=== PATIENT | female | born 1995 | race Caucasian/White ===

== ENCOUNTER 2023-04-17 17:10 | Observation (INO) | payer OTHER, SELFPAY ==
[2023-04-17 17:33] VITALS: BP 133/90; PULSE 104
[2023-04-17 17:43] LABS: Basophils Absolute Auto 0.1 10^3/uL (0.0-0.1); Basophils Percent Auto 0.5 % (0.2-2.0); Eosinophils Absolute Auto 0.1 10^3/uL (0.0-0.7); Eosinophils Percent Auto 0.9 % (0.9-7.0); Hematocrit 37.3 % (36.0-48.0); Hemoglobin 12.5 g/dL (12.0-16.0); Immature Granulocytes Abs Auto 0.15 10^3/uL (0.00-0.03); Immature Granulocytes Pct Auto 1.5 % (0.0-0.5); Lymphocytes Absolute Auto 2.3 10^3/uL (1.2-3.8); Lymphocytes Percent Auto 23.8 % (20.5-60.0); Mean Corpuscular HGB Conc 33.5 g/dL (29.9-35.2); Mean Corpuscular Hemoglobin 30.4 pg (26.7-34.0); Mean Corpuscular Volume 90.8 fL (81.0-99.0); Mean Platelet Volume 11.8 fL (9.5-13.5); Monocytes Absolute Auto 0.8 10^3/uL (0.3-0.8); Monocytes Percent Auto 8.5 % (1.7-12.0); Neutrophils Absolute Auto 6.3 10^3/uL (1.4-6.5); Neutrophils Percent Auto 64.8 % (43.0-75.0); Platelet Count 172 10^3/uL (150-450); Red Blood Count 4.11 10^6/uL (4.20-5.40); Red Cell Distribution Width 14.6 % (11.0-15.0); White Blood Count 9.8 10^3/uL (4.0-11.0)
[2023-04-17 17:48] VITALS: BP 120/74; PULSE 86
[2023-04-17 18:11] LABS: Creatinine Urine Random 23.74 mg/dL (20.00-300.00); Protein Creatinine Ratio Urine 0.25; Total Protein Urine Random <6.0 mg/dL (<=11.9)
[2023-04-17 18:13] LABS: Alanine Aminotransferase 12 U/L (14-59); Albumin Globulin Ratio 0.6; Albumin Level 2.6 g/dL (3.4-5.0); Alkaline Phosphatase 149 U/L (46-116); Anion Gap 14.7; Aspartate Amino Transferase 12 U/L (15-37); BUN Creatinine Ratio 12.7; Bilirubin Total 0.2 mg/dL (0.2-1.0); Calcium 8.7 mg/dL (8.5-10.1); Carbon Dioxide 22.2 mmol/L (21.0-32.0); Chloride 104 mmol/L (98-107); Estimated GFR (African America >60 (>=60); Estimated GFR (Non-African Ame >60 (>=60); Globulin 4.3 g/dL; Glucose 127 mg/dL (74-106); Lactate Dehydrogenase 89 U/L (81-234); Potassium 3.9 mmol/L (3.5-5.1); Sodium 137 mmol/L (136-145); Total Protein 6.9 g/dL (6.4-8.2); Uric Acid 4.5 mg/dL (2.6-6.0)
[2023-04-17 18:43] VITALS: BP 140/87; PULSE 89
[2023-04-17 19:19] VITALS: BP 111/59; PULSE 92
[2023-04-17 19:51] VITALS: BP 116/70; PULSE 89
[2023-04-17 20:21] VITALS: BP 117/68; PULSE 88
== END 2023-04-17 20:32 | disposition home or self-care (01) ==
LOC: FBC 17:13
PROVIDERS: Midwife; Admitting Provider Obstetrics & Gynecology; Visit Provider Obstetrics & Gynecology
DX: O16.9 Unspecified maternal hypertension, unspecified trimester (principal); Z3A.00 Weeks of gestation of pregnancy not specified
CPT/HCPCS: 36415; 59025; 80053; 82570; 83615; 84156; 84550; 85025; G0378; G0379

== ENCOUNTER 2023-04-24 17:17 | Inpatient (IN) | payer OTHER, SELFPAY ==
[2023-04-24] VITALS (9 sets, daily range): BP systolic 121–142; BP diastolic 73–94; PULSE 81–100; TEMP 36.9
[2023-04-24 18:00] LABS: Hematocrit 37.9 % (36.0-48.0); Hemoglobin 12.6 g/dL (12.0-16.0); Mean Corpuscular HGB Conc 33.2 g/dL (29.9-35.2); Mean Corpuscular Hemoglobin 30.3 pg (26.7-34.0); Mean Corpuscular Volume 91.1 fL (81.0-99.0); Mean Platelet Volume 12.1 fL (9.5-13.5); Platelet Count 164 10^3/uL (150-450); Red Blood Count 4.16 10^6/uL (4.20-5.40); Red Cell Distribution Width 14.4 % (11.0-15.0); White Blood Count 10.1 10^3/uL (4.0-11.0)
[2023-04-24 18:10] LABS: Amphetamine Screen Urine NEGATIVE (NEGATIVE); Barbiturates Screen Urine NEGATIVE (NEGATIVE); Benzodiazepines Screen Urine NEGATIVE (NEGATIVE); Buprenorphine Screen Urine NEGATIVE (NEGATIVE); Cannabinoid Screen Urine NEGATIVE (NEGATIVE); Cocaine Screen Urine NEGATIVE (NEGATIVE); Methadone Screen Urine NEGATIVE (NEGATIVE); Methamphetamines Screen Urine NEGATIVE (NEGATIVE); Opiate Screen Urine NEGATIVE (NEGATIVE); Oxycodone Screen Urine NEGATIVE (NEGATIVE); Phencyclidine Screen Urine NEGATIVE (NEGATIVE); Tricyclic Antidepressant Urine NEGATIVE (NEGATIVE)
[2023-04-24] MEDS: DINOPROSTONE 10 MG VAG INSERT.ER VAGINAL (18:41)
[2023-04-24 18:58] LABS: Alanine Aminotransferase 14 U/L (14-59); Albumin Globulin Ratio 0.6; Albumin Level 2.6 g/dL (3.4-5.0); Alkaline Phosphatase 156 U/L (46-116); Anion Gap 12.2; Aspartate Amino Transferase 15 U/L (15-37); BUN Creatinine Ratio 10.1; Bilirubin Total 0.1 mg/dL (0.2-1.0); Calcium 8.9 mg/dL (8.5-10.1); Carbon Dioxide 21.6 mmol/L (21.0-32.0); Chloride 103 mmol/L (98-107); Estimated GFR (African America >60 (>=60); Estimated GFR (Non-African Ame >60 (>=60); Globulin 4.1 g/dL; Glucose 143 mg/dL (74-106); Lactate Dehydrogenase 114 U/L (81-234); Potassium 3.8 mmol/L (3.5-5.1); Sodium 133 mmol/L (136-145); Total Protein 6.7 g/dL (6.4-8.2); Uric Acid 5.1 mg/dL (2.6-6.0)
[2023-04-24 19:03] LABS: Creatinine Urine Random 24.72 mg/dL (20.00-300.00); Protein Creatinine Ratio Urine 0.24; Total Protein Urine Random <6.0 mg/dL (<=11.9)
[2023-04-24] MEDS: SERTRALINE HCL 50 MG TABLET PO (20:43)
[2023-04-24] MEDS: ZOLPIDEM TARTRATE 5 MG TABLET PO (22:30)
[2023-04-25] VITALS (67 sets, daily range): BP systolic 96–157; BP diastolic 51–97; PULSE 64–114; RESP 12–20; TEMP 36.1–37; O2SAT 92–94
[2023-04-25] MEDS: 0.9 % SODIUM CHLORIDE 1,000 ML 125 ML IV ×4 (07:58→20:57)
[2023-04-25] MEDS: OXYTOCIN/0.9 % SODIUM CHLORIDE 10 UNITS/500 ML PLAST..BAG 6 UNIT IV (07:58)
--- NOTE | 2023-04-25 08:14 | PM.OBHP ---
OB - H&P: HPI History of Present Illness Chief complaint: PARTNERS : 1 Para: 0 History of Present Dating criteria: LMP confirmed by 1st trimester US care: good care Ultrasounds: normal 1st trimester US, normal mid trimester US and other Abnormal ultrasound findings: 3rd US for growth. EFW 8#-11 oz Medical complications OB: none Narrative: history of failed 1 hr gtt, passed 3 hr gtt Labs Blood type: O (+) positive Rubella: immune RPR/VDLR: nonreactive GBS status: negative HBsAG: negative Review of Systems ROS Psychiatric Reports: anxiety (patient has a history of anxiety ) Meds Home Medications and Allergies Home Medications Medication Instructions Recorded Confirmed Type ondansetron 8 mg disintegrating mg 04/24/23 History tablet vits no.130-ferrous fum tab 04/24/23 History 27 mg iron-folic acid 800 mcg tablet ( Vitamin) sertraline 50 mg tablet mg 04/24/23 History Allergies Allergy/AdvReac Type Severity Reaction Status Date / Time promethazine AdvReac Intermediate muscle Verified 04/24/23 17:59 twitching Exam Constitutional Vital Signs, click to edit/add: Last Vital Signs Temp 97.2 F L 04/25/23 08:01 Pulse 109 H 04/25/23 08:10 BP 134/94 H 04/25/23 08:10 Common normals: no apparent distress Orientation/consciousness: Yes awake, Yes oriented to person, Yes oriented to place and Yes oriented to time HENMT Common normals: normocephalic Eye General eye: normal appearance of both eyes Neck & C-Spine General: normal visual inspection Lymph Lymphatic: no lymphadenopathy noted Chest Common normals: inspection of chest normal Respiratory Common normals: normal respiratory effort Auscultation: clear to auscultation bilaterally Cardio Common normals: regular rate and regular rhythm Rate: regular rate Rhythm: regular rhythm GI Common normals: Normal to inspection, nondistended, normoactive bowel sounds present Auscultation: normoactive bowel sounds Common normals: no CVA tenderness Extremity Common normals: normal to inspection and full ROM Neuro Common normals: oriented x3 Psych Attitude: calm Results Labs Labs: Short CBC 04/24/23 Range/Units 17:50 WBC 10.1 (4.0-11.0) 10^3/uL Hgb 12.6 (12.0-16.0) g/dL Hct 37.9 (36.0-48.0) % Plt Count 164 (150-450) 10^3/uL BMP 04/24/23 16:35 Sodium 133 L Potassium 3.8 Chloride 103 Carbon Dioxide 21.6 BUN 7.0 Creatinine 0.69 Glucose 143 H Calcium 8.9 Liver Function 04/24/23 Range/Units 16:35 Total Bilirubin 0.1 L (0.2-1.0) mg/dL AST 15 (15-37) U/L ALT 14 (14-59) U/L Alkaline Phosphatase 156 H (46-116) U/L Albumin 2.6 L (3.4-5.0) g/dL
[2023-04-25] MEDS: 0.9 % SODIUM CHLORIDE 1,000 ML 1000 ML IV (14:58)
[2023-04-25] MEDS: FENTANYL CITRATE/PF 100 MCG/2 ML VIAL EPIDURAL ×2 (16:03→16:05)
[2023-04-25] MEDS: ROPIVACAINE HCL/PF 400 MG/200 ML PREMIX EPIDURAL (16:04)
[2023-04-25] MEDS: FAMOTIDINE/PF 20 MG/2 ML VIAL IV (21:36)
[2023-04-25] MEDS: CITRIC ACID/SODIUM CITRATE 30 ML SOLUTION ORACIT SHOHL'S SOLN PO (21:36)
[2023-04-25] MEDS: CEFAZOLIN SODIUM/DEXTROSE,ISO 2 GM/50 ML PIGGYBACK IV (22:16)
[2023-04-25] MEDS: LACTATED RINGER'S SOLUTION 1,000 ML 50 ML IV (22:40)
--- NOTE | 2023-04-25 23:06 | P.ON_ITS ---
Brief Operative Note Date of procedure: 04/25/23 Pre-op diagnosis: iup at 39wks, non reassuring heart tones Post-op diagnosis: same as pre-op Procedure: NAME OF PROCEDURE: [ section ] PROCEDURE: Patient was taken back to the Operating Room where she was given a spinal anesthesia with Duramorph without difficulty. She was prepped and draped in the normal sterile fashion. A Pfannenstiel skin incision was then made 2 cm above the symphysis pubis and carried down to underlying rectus fascia using a Bovie. The fascia was incised in the midline and extended laterally using Luna scissors. Two Karime clamps were placed on the superior aspect of the fascia and dissected off the underlying rectus muscles. The same was performed on the inferior aspect as well. The muscles were then in the midline. Peritoneum was identified and entered bluntly. The peritoneum was then extended superiorly and inferiorly with good visualization of the bladder. The bladder blade was inserted. A low transverse incision was made on the patient's uterus and extended laterally digitally. The was then delivered atraumatically after the bladder blade was removed in the cephalic position. The cord was clamped and cut. Cord blood was obtained. The infant was handed off to awaiting team. The patient's placenta was spontaneously delivered. The uterus was then exteriorized. The uterus was cleared of all clots and debris. The bladder blade was reinserted. The patient's uterine incision was closed using #0 Vicryl in a running lock fashion. Excellent hemostasis was assured. The uterus was then returned to the patient's abdomen. The patient's abdomen was copiously irrigated using warm saline. Peritoneal gutters were cleared of all clots and debris. Again excellent hemostasis was assured. The patient's peritoneum was closed using 3-0 Vicryl in a running fashion. The patient's fascia was closed using #0 Vicryl in a running fashion. The patient's skin was closed using 4-0 Vicryl subcuticularly. The patient tolerated the procedure well. Sponge, lap, and needle counts were correct x2. The patient was taken to the Recovery Room in stable condition. Anesthesia: epidural Surgeon: Tyrel Muñiz Therapeutic Recreation Leader: JOVANNA MARR Estimated blood loss (mL): 575 Pathology: other (placenta) Condition: stable Disposition: PACU
--- NOTE | 2023-04-25 23:08 | PM.OBPRCCS ---
Procedure Pre-op/Post-op diagnoses: Pre-Op/Post-Op Diagnoses Operation Date: 04/25/23 22:00 <No data on this case meets the specified criteria> Procedure: Procedures Operation Date: 04/25/23 22:00 Actual Procedure Side Surgeon p Not Applicable Tyrel Muñiz DO Supervisor Safety Deposit: JOVANNA MARR Estimated blood loss (mL): 575 Anesthesia type: Epidural
--- NOTE | 2023-04-25 23:34 | PM.EN ---
Event Note Event Note: Compress Machine Operator Note: i first assisted Dr Muñiz with primary section. i first assisted as directed by physician. I independently closed the SQ layer with 3-0 vicryl on a C-T needle without difficulty. i then independently closed the incision with a 4-0 vicryl on a Kyree Needle without difficulty. Hemostasis noted at completion. Patient tolerated procedure well.
[2023-04-26] VITALS (19 sets, daily range): BP systolic 108–174; BP diastolic 56–86; PULSE 86–103; RESP 14–18; TEMP 36.7–36.9
[2023-04-26] MEDS: OXYTOCIN/0.9 % SODIUM CHLORIDE 20 UNITS/1,000 ML PLAST..BAG 200 UNIT IV (00:30)
[2023-04-26] MEDS: CEFAZOLIN SODIUM/DEXTROSE,ISO 2 GM/50 ML PIGGYBACK IV (04:21)
[2023-04-26] MEDS: KETOROLAC TROMETHAMINE 30 MG/ML VIAL IVP ×3 (04:37→20:52)
[2023-04-26 05:53] LABS: Basophils Percent Auto 0.2 % (0.2-2.0); Hematocrit 33.5 % (36.0-48.0); Hemoglobin 10.8 g/dL (12.0-16.0); Immature Granulocytes Abs Auto 0.24 10^3/uL (0.00-0.03); Immature Granulocytes Pct Auto 1.2 % (0.0-0.5); Lymphocytes Absolute Auto 1.1 10^3/uL (1.2-3.8); Lymphocytes Percent Auto 5.5 % (20.5-60.0); Mean Corpuscular HGB Conc 32.2 g/dL (29.9-35.2); Mean Corpuscular Hemoglobin 30.7 pg (26.7-34.0); Mean Corpuscular Volume 95.2 fL (81.0-99.0); Mean Platelet Volume 11.8 fL (9.5-13.5); Monocytes Absolute Auto 1.1 10^3/uL (0.3-0.8); Monocytes Percent Auto 5.3 % (1.7-12.0); Neutrophils Absolute Auto 17.6 10^3/uL (1.4-6.5); Neutrophils Percent Auto 87.8 % (43.0-75.0); Platelet Count 154 10^3/uL (150-450); Red Blood Count 3.52 10^6/uL (4.20-5.40); Red Cell Distribution Width 14.7 % (11.0-15.0); White Blood Count 20.1 10^3/uL (4.0-11.0)
--- NOTE | 2023-04-26 07:38 | W.PC.ACHO ---
Registration Status: ADM IN Primary Language: Central African Preferred Language: Central African Active Medications 0730- Report given to Wicho Torres RN Generic Name Dose Route Start Last Admin Trade Name Freq PRN Reason Stop Dose Admin Acetaminophen 1,000 mg 04/24/23 22:21 Acetaminophen 500 Mg Tablet PO Q6H PRN Pain Al Hydroxide/Mg Hydroxide 2,400 mg 04/25/23 23:08 Magnesium Hydroxide 2,400 Mg/10 Ml Oral.Susp PO Q6H PRN Dyspepsia Butorphanol Tartrate 1 mg 04/25/23 11:38 04/25/23 12:32 Butorphanol Tartrate 1 Mg/Ml 1 Ml Vial IM 1 mg Q4H PRN Administration Pain Calcium Carbonate 500 mg 04/24/23 22:21 Calcium Carbonate 500 Mg (200mg Elemental) Tab Chew PO TID PRN Indigestion Carboprost Tromethamine 250 mcg 04/24/23 17:27 Carboprost Tromethamine 250 Mcg/Ml 1 Ml Vial IM 04/26/23 17:27 Q15M PRN Bleeding Diphenhydramine HCl 25 mg 04/25/23 23:08 Diphenhydramine Hcl 50 Mg/Ml (1ml) Vial IV 04/26/23 23:09 Q6H PRN Itching Docusate Sodium 100 mg 04/26/23 09:00 Docusate Sodium 100 Mg Capsule PO BID JEAN Enoxaparin Sodium 40 mg 04/26/23 11:00 Enoxaparin Sodium 40 Mg/0.4 Ml Syringe SUBQ Q24H JEAN Sodium Chloride 1,000 mls @ 125 mls/hr 04/24/23 18:00 04/25/23 20:57 Sodium Chloride 0.9% 1,000 Ml IV 125 mls/hr Q8H JEAN Administration Oxytocin/Sodium Chloride 20 units in 1,000 mls @ 125 mls/hr 04/26/23 07:17 Pitocin 20 Unit/1,000 Ml-Ns IV 04/26/23 15:16 ONCE ONE Protocol Oxytocin/Sodium Chloride 10 units in 500 mls @ 6 mls/hr 04/25/23 07:30 04/25/23 11:30 Pitocin 10 Unit/500 Ml-Ns IV 14 milliunit/min Q24H JEAN 42 mls/hr Infusion Protocol 2 MILLIUNIT/MIN Lactated Ringer's 1,000 mls @ 50 mls/hr 04/25/23 22:45 04/25/23 22:40 Lactated Ringers IV 50 mls/hr .Q20H JEAN Administration Lactated Ringer's 1,000 mls @ 125 mls/hr 04/25/23 23:15 Lactated Ringers IV .Q8H JEAN Ibuprofen 800 mg 04/25/23 23:08 Ibuprofen 400 Mg Tablet PO Q8H PRN Pain Ketorolac Tromethamine 30 mg 04/25/23 23:08 04/26/23 04:37 Ketorolac Tromethamine 30 Mg/Ml Vial IVP 04/27/23 23:09 30 mg Q6H PRN Administration Pain Lidocaine 5 ml 04/24/23 18:00 Lidocaine Viscous 2% 15 Ml Topical Solution TOPICAL ONCE PRN Pain Lidocaine 1 ml 04/24/23 18:00 Lidocaine Hcl 1% 200 Mg/20 Ml Mdv INJ ONCE PRN Pain Methylergonovine Maleate 0.2 mg 04/24/23 17:27 Methylergonovine Maleate 0.2 Mg Tablet PO 04/26/23 17:27 Q4H PRN Uterine Contractility/Contract Methylergonovine Maleate 0.2 mg 04/24/23 17:27 Methylergonovine Maleate 0.2 Mg/Ml Ampule IM 04/26/23 17:27 ONCE PRN Uterine Contractility/Contract Misoprostol 600 mcg 04/24/23 17:27 Misoprostol 100 Mcg Tablet PO 04/26/23 17:27 ONCE PRN Uterine Bleeding Misoprostol 800 mcg 04/24/23 17:27 Misoprostol 100 Mcg Tablet SL 04/26/23 17:27 ONCE PRN Uterine Bleeding Misoprostol 1,000 mcg 04/24/23 17:27 Misoprostol 100 Mcg Tablet TX 04/26/23 17:27 ONCE PRN Uterine Bleeding Nalbuphine HCl 10 mg 04/25/23 23:08 Nalbuphine Hcl 10 Mg/Ml Ampule IV 04/26/23 23:09 Q3H PRN Itching Ondansetron HCl 4 mg 04/24/23 17:27 Ondansetron Pf 4 Mg/2 Ml Vial IV Q6H PRN Nausea And Vomiting Ondansetron HCl 4 mg 04/24/23 17:27 Ondansetron 4 Mg Rapdis Tablet SL Q6H PRN Nausea And Vomiting Ondansetron HCl 4 mg 04/25/23 23:08 Ondansetron Pf 4 Mg/2 Ml Vial IV Q6H PRN Nausea And Vomiting Ondansetron HCl 4 mg 04/25/23 23:08 Ondansetron 4 Mg Rapdis Tablet PO Q6H PRN Nausea And Vomiting Oxycodone/Acetaminophen 2 tab 04/25/23 23:08 Oxycodone Hcl/Acetaminophen 1 Tab Tablet PO Q4H PRN Pain Scale 7-10 Oxycodone/Acetaminophen 1 tab 04/25/23 23:08 Oxycodone Hcl/Acetaminophen 1 Tab Tablet PO Q4H PRN Pain Scale 4-6 Oxytocin 10 unit 04/24/23 18:30 Oxytocin 10 Unit/Ml Vial IM ONCE PRN excessive bleeding Senna 17.2 mg 04/25/23 20:00 Sennosides 8.6 Mg Tablet PO QHS PRN Constipation Sertraline HCl 50 mg 04/25/23 22:00 04/26/23 01:10 Sertraline Hcl 50 Mg Tablet PO Not Given QD@2200 JEAN Simethicone 80 mg 04/25/23 23:08 Simethicone 80 Mg Tab.Chew PO QID PRN Abdominal Distention Zolpidem Tartrate 5 mg 04/24/23 22:14 04/24/23 22:30 Zolpidem Tartrate 5 Mg Tablet PO 5 mg HS PRN Administration Insomnia Diet Category Date Time Status Regular Consistency Diet Diet 04/26/23 Breakfast Active Respiratory Lung sounds [Bilateral clear Throughout] Lung sounds [Bilateral clear Throughout] Lung sounds [Bilateral clear Throughout] Lung sounds [Bilateral clear Throughout] Lung sounds [Bilateral clear Throughout] Pulse Oximetry 93 Pulse Oximetry 94 Pulse Oximetry 94 Pulse Oximetry 93 Pulse Oximetry 92 Pulse Oximetry 94 Pulse Oximetry 94 Oxygen Delivery Method Room Air Oxygen Delivery Method Room Air Oxygen Delivery Method Room Air Oxygen Delivery Method Room Air Oxygen Delivery Method Room Air Oxygen Delivery Method Room Air Oxygen Delivery Method Room Air Cardiology Heart Sounds Strong,Regular Heart Sounds Strong,Regular Bowels Bowel Pattern No Bowel Movement Bowel Pattern No Bowel Movement Renal Bladder Pattern Continent Bladder Pattern Continent
[2023-04-26] MEDS: DOCUSATE SODIUM 100 MG CAPSULE PO ×2 (10:31→20:53)
--- NOTE | 2023-04-26 11:57 | P.OBPN_ITS ---
OB - PN: Subj Subjective Patient comments: no complaints and pain well controlled [place] status: doing well Exam Constitutional Vital Signs, click to edit/add: Last Vital Signs Temp 98.1 F 04/26/23 09:10 Pulse 95 H 04/26/23 08:26 Resp 18 04/26/23 09:10 BP 108/70 04/26/23 08:26 Pulse Ox 93 L 04/25/23 23:54 O2 Del Method Room Air 04/26/23 04:35 Documenting provider has reviewed patient's vital signs: yes Common normals: no apparent distress Respiratory Common normals: normal respiratory effort and clear to auscultation bilaterally Cardio Common normals: regular rate and regular rhythm GI Common normals: Normal to inspection, nondistended, normoactive bowel sounds present Extremity Common normals: no clubbing, cyanosis or edema and no calf tenderness Results Labs Labs: Short CBC 04/26/23 Range/Units 05:40 WBC 20.1 H (4.0-11.0) 10^3/uL Hgb 10.8 L (12.0-16.0) g/dL Hct 33.5 L (36.0-48.0) % Plt Count 154 (150-450) 10^3/uL OB - PN: A/P Plan - day: 1 Plan: routine postop care Time Spent with Patient Time: Total time spent is greater than 50% in coordination of care (as documented) at patient's floor/unit and/or counseling patient: Total time spent with greater than 50% in coordination of care (as documented) at patient's floor/unit and/or counseling patient: less than 15 minutes
[2023-04-26] MEDS: ENOXAPARIN SODIUM 40 MG/0.4 ML SYRINGE SUBQ (13:47)
--- NOTE | 2023-04-26 19:26 | W.PC.ACHO ---
Registration Status: ADM IN Primary Language: Bhutanese Preferred Language: Bhutanese Active Medications Generic Name Dose Route Start Last Admin Trade Name Freq PRN Reason Stop Dose Admin Acetaminophen 1,000 mg 04/24/23 22:21 Acetaminophen 500 Mg Tablet PO Q6H PRN Pain Al Hydroxide/Mg Hydroxide 2,400 mg 04/25/23 23:08 Magnesium Hydroxide 2,400 Mg/10 Ml Oral.Susp PO Q6H PRN Dyspepsia Butorphanol Tartrate 1 mg 04/25/23 11:38 04/25/23 12:32 Butorphanol Tartrate 1 Mg/Ml 1 Ml Vial IM 1 mg Q4H PRN Administration Pain Calcium Carbonate 500 mg 04/24/23 22:21 Calcium Carbonate 500 Mg (200mg Elemental) Tab Chew PO TID PRN Indigestion Diphenhydramine HCl 25 mg 04/25/23 23:08 Diphenhydramine Hcl 50 Mg/Ml (1ml) Vial IV 04/26/23 23:09 Q6H PRN Itching Docusate Sodium 100 mg 04/26/23 09:00 04/26/23 10:31 Docusate Sodium 100 Mg Capsule PO 100 mg BID JEAN Administration Enoxaparin Sodium 40 mg 04/26/23 11:00 04/26/23 13:47 Enoxaparin Sodium 40 Mg/0.4 Ml Syringe SUBQ 40 mg Q24H JEAN Administration Sodium Chloride 1,000 mls @ 125 mls/hr 04/24/23 18:00 04/25/23 20:57 Sodium Chloride 0.9% 1,000 Ml IV 125 mls/hr Q8H JEAN Administration Oxytocin/Sodium Chloride 10 units in 500 mls @ 6 mls/hr 04/25/23 07:30 04/25/23 11:30 Pitocin 10 Unit/500 Ml-Ns IV 14 milliunit/min Q24H JEAN 42 mls/hr Infusion Protocol 2 MILLIUNIT/MIN Lactated Ringer's 1,000 mls @ 50 mls/hr 04/25/23 22:45 04/25/23 22:40 Lactated Ringers IV 50 mls/hr .Q20H JEAN Administration Lactated Ringer's 1,000 mls @ 125 mls/hr 04/25/23 23:15 Lactated Ringers IV .Q8H JEAN Ibuprofen 800 mg 04/25/23 23:08 Ibuprofen 400 Mg Tablet PO Q8H PRN Pain Ketorolac Tromethamine 30 mg 04/25/23 23:08 04/26/23 14:01 Ketorolac Tromethamine 30 Mg/Ml Vial IVP 04/27/23 23:09 30 mg Q6H PRN Administration Pain Lidocaine 5 ml 04/24/23 18:00 Lidocaine Viscous 2% 15 Ml Topical Solution TOPICAL ONCE PRN Pain Lidocaine 1 ml 04/24/23 18:00 Lidocaine Hcl 1% 200 Mg/20 Ml Mdv INJ ONCE PRN Pain Nalbuphine HCl 10 mg 04/25/23 23:08 Nalbuphine Hcl 10 Mg/Ml Ampule IV 04/26/23 23:09 Q3H PRN Itching Ondansetron HCl 4 mg 04/24/23 17:27 Ondansetron Pf 4 Mg/2 Ml Vial IV Q6H PRN Nausea And Vomiting Ondansetron HCl 4 mg 04/24/23 17:27 Ondansetron 4 Mg Rapdis Tablet SL Q6H PRN Nausea And Vomiting Ondansetron HCl 4 mg 04/25/23 23:08 Ondansetron Pf 4 Mg/2 Ml Vial IV Q6H PRN Nausea And Vomiting Ondansetron HCl 4 mg 04/25/23 23:08 Ondansetron 4 Mg Rapdis Tablet PO Q6H PRN Nausea And Vomiting Oxycodone/Acetaminophen 2 tab 04/25/23 23:08 Oxycodone Hcl/Acetaminophen 1 Tab Tablet PO Q4H PRN Pain Scale 7-10 Oxycodone/Acetaminophen 1 tab 04/25/23 23:08 Oxycodone Hcl/Acetaminophen 1 Tab Tablet PO Q4H PRN Pain Scale 4-6 Oxytocin 10 unit 04/24/23 18:30 Oxytocin 10 Unit/Ml Vial IM ONCE PRN excessive bleeding Senna 17.2 mg 04/25/23 20:00 Sennosides 8.6 Mg Tablet PO QHS PRN Constipation Sertraline HCl 50 mg 04/25/23 22:00 04/26/23 01:10 Sertraline Hcl 50 Mg Tablet PO Not Given QD@2200 JEAN Simethicone 80 mg 04/25/23 23:08 Simethicone 80 Mg Tab.Chew PO QID PRN Abdominal Distention Zolpidem Tartrate 5 mg 04/24/23 22:14 04/24/23 22:30 Zolpidem Tartrate 5 Mg Tablet PO 5 mg HS PRN Administration Insomnia Diet Category Date Time Status Regular Consistency Diet Diet 04/26/23 Breakfast Active Respiratory Lung sounds [Bilateral clear Throughout] Lung sounds [Bilateral clear Throughout] Lung sounds [Bilateral clear Throughout] Lung sounds [Bilateral clear Throughout] Pulse Oximetry 93 Pulse Oximetry 94 Pulse Oximetry 94 Pulse Oximetry 93 Pulse Oximetry 92 Pulse Oximetry 94 Oxygen Delivery Method Room Air Oxygen Delivery Method Room Air Oxygen Delivery Method Room Air Oxygen Delivery Method Room Air Oxygen Delivery Method Room Air Oxygen Delivery Method Room Air Cardiology Heart Sounds Strong,Regular Heart Sounds Strong,Regular Bowels Bowel Pattern No Bowel Movement Bowel Pattern No Bowel Movement Renal Bladder Pattern Continent Bladder Pattern Continent
--- NOTE | 2023-04-27 03:48 | P.OBPN_ITS ---
OB - PN: Subj Subjective Patient comments: no complaints [place] status: doing well Exam Constitutional Vital Signs, click to edit/add: Last Vital Signs Temp 98.4 F 04/26/23 21:15 Pulse 86 04/26/23 21:15 Resp 18 04/26/23 21:15 BP 122/86 04/26/23 21:15 Pulse Ox 93 L 04/25/23 23:54 O2 Del Method Room Air 04/26/23 21:15 Documenting provider has reviewed patient's vital signs: yes Common normals: no apparent distress Respiratory Common normals: normal respiratory effort and clear to auscultation bilaterally Cardio Common normals: regular rate and regular rhythm GI Common normals: Normal to inspection, nondistended, normoactive bowel sounds present Extremity Common normals: no clubbing, cyanosis or edema and no calf tenderness Results Labs Labs: Short CBC 04/26/23 Range/Units 05:40 WBC 20.1 H (4.0-11.0) 10^3/uL Hgb 10.8 L (12.0-16.0) g/dL Hct 33.5 L (36.0-48.0) % Plt Count 154 (150-450) 10^3/uL OB - PN: A/P Plan - day: 2 Plan: routine postop care Time Spent with Patient Time: Total time spent is greater than 50% in coordination of care (as documented) at patient's floor/unit and/or counseling patient: Total time spent with greater than 50% in coordination of care (as documented) at patient's floor/unit and/or counseling patient: less than 15 minutes
[2023-04-27] MEDS: KETOROLAC TROMETHAMINE 30 MG/ML VIAL IVP ×3 (05:56→17:52)
[2023-04-27 10:13] VITALS: BP 121/67; PULSE 105
[2023-04-27] MEDS: DOCUSATE SODIUM 100 MG CAPSULE PO ×2 (10:15→23:48)
[2023-04-27] MEDS: ENOXAPARIN SODIUM 40 MG/0.4 ML SYRINGE SUBQ (10:15)
--- NOTE | 2023-04-27 15:31 | W.PC.ACHO ---
Registration Status: ADM IN Primary Language: Danish Preferred Language: Danish Active Medications Generic Name Dose Route Start Last Admin Trade Name Freq PRN Reason Stop Dose Admin Acetaminophen 1,000 mg 04/24/23 22:21 Acetaminophen 500 Mg Tablet PO Q6H PRN Pain Al Hydroxide/Mg Hydroxide 2,400 mg 04/25/23 23:08 Magnesium Hydroxide 2,400 Mg/10 Ml Oral.Susp PO Q6H PRN Dyspepsia Butorphanol Tartrate 1 mg 04/25/23 11:38 04/25/23 12:32 Butorphanol Tartrate 1 Mg/Ml 1 Ml Vial IM 1 mg Q4H PRN Administration Pain Calcium Carbonate 500 mg 04/24/23 22:21 Calcium Carbonate 500 Mg (200mg Elemental) Tab Chew PO TID PRN Indigestion Docusate Sodium 100 mg 04/26/23 09:00 04/27/23 10:15 Docusate Sodium 100 Mg Capsule PO 100 mg BID JEAN Administration Enoxaparin Sodium 40 mg 04/26/23 11:00 04/27/23 10:15 Enoxaparin Sodium 40 Mg/0.4 Ml Syringe SUBQ 40 mg Q24H JEAN Administration Sodium Chloride 1,000 mls @ 125 mls/hr 04/24/23 18:00 04/25/23 20:57 Sodium Chloride 0.9% 1,000 Ml IV 125 mls/hr Q8H JEAN Administration Oxytocin/Sodium Chloride 10 units in 500 mls @ 6 mls/hr 04/25/23 07:30 04/25/23 11:30 Pitocin 10 Unit/500 Ml-Ns IV 14 milliunit/min Q24H JEAN 42 mls/hr Infusion Protocol 2 MILLIUNIT/MIN Lactated Ringer's 1,000 mls @ 50 mls/hr 04/25/23 22:45 04/25/23 22:40 Lactated Ringers IV 50 mls/hr .Q20H JEAN Administration Lactated Ringer's 1,000 mls @ 125 mls/hr 04/25/23 23:15 Lactated Ringers IV .Q8H JEAN Ibuprofen 800 mg 04/25/23 23:08 Ibuprofen 400 Mg Tablet PO Q8H PRN Pain Ketorolac Tromethamine 30 mg 04/25/23 23:08 04/27/23 12:24 Ketorolac Tromethamine 30 Mg/Ml Vial IVP 04/27/23 23:09 30 mg Q6H PRN Administration Pain Ondansetron HCl 4 mg 04/25/23 23:08 Ondansetron Pf 4 Mg/2 Ml Vial IV Q6H PRN Nausea And Vomiting Ondansetron HCl 4 mg 04/25/23 23:08 Ondansetron 4 Mg Rapdis Tablet PO Q6H PRN Nausea And Vomiting Oxycodone/Acetaminophen 2 tab 04/25/23 23:08 Oxycodone Hcl/Acetaminophen 1 Tab Tablet PO Q4H PRN Pain Scale 7-10 Oxycodone/Acetaminophen 1 tab 04/25/23 23:08 Oxycodone Hcl/Acetaminophen 1 Tab Tablet PO Q4H PRN Pain Scale 4-6 Oxytocin 10 unit 04/24/23 18:30 Oxytocin 10 Unit/Ml Vial IM ONCE PRN excessive bleeding Senna 17.2 mg 04/25/23 20:00 Sennosides 8.6 Mg Tablet PO QHS PRN Constipation Sertraline HCl 50 mg 04/25/23 22:00 04/26/23 01:10 Sertraline Hcl 50 Mg Tablet PO Not Given QD@2200 JEAN Simethicone 80 mg 04/25/23 23:08 Simethicone 80 Mg Tab.Chew PO QID PRN Abdominal Distention Zolpidem Tartrate 5 mg 04/24/23 22:14 04/24/23 22:30 Zolpidem Tartrate 5 Mg Tablet PO 5 mg HS PRN Administration Insomnia Respiratory Lung sounds [Bilateral clear Throughout] Oxygen Delivery Method Room Air Cardiology Heart Sounds Strong,Regular Bowels Bowel Pattern No Bowel Movement Renal Bladder Pattern Continent
[2023-04-27 16:41] VITALS: BP 139/76; PULSE 101
[2023-04-27 17:41] VITALS: BP 139/76; PULSE 101; RESP 18; TEMP 36.7
--- NOTE | 2023-04-27 20:55 | PC.NURSE ---
electric pump education. pt demonstrates correct use.
--- NOTE | 2023-04-27 23:08 | RESP.RT ---
Patient at this time
[2023-04-27] MEDS: IBUPROFEN 400 MG TABLET 800 MG PO (23:48)
[2023-04-28] VITALS: BP 131/94; PULSE 92; RESP 18; TEMP 36.8
[2023-04-28] MEDS: IBUPROFEN 400 MG TABLET 800 MG PO ×2 (09:51→20:50)
[2023-04-28] MEDS: DOCUSATE SODIUM 100 MG CAPSULE PO ×2 (09:51→20:51)
[2023-04-28 09:58] VITALS: BP 130/77; PULSE 84
[2023-04-28 11:03] VITALS: RESP 18; TEMP 36.9
--- NOTE | 2023-04-28 11:27 | P.OBPN_ITS ---
OB - PN: Subj Subjective Patient comments: no complaints and pain well controlled [place] status: doing well Exam Constitutional Vital Signs, click to edit/add: Last Vital Signs Temp 98.4 F 04/28/23 11:03 Pulse 84 04/28/23 09:58 Resp 18 04/28/23 11:03 BP 130/77 04/28/23 09:58 Pulse Ox 93 L 04/25/23 23:54 O2 Del Method Room Air 04/28/23 00:00 Documenting provider has reviewed patient's vital signs: yes Common normals: no apparent distress Respiratory Common normals: normal respiratory effort and clear to auscultation bilaterally Cardio Common normals: regular rate and regular rhythm GI Common normals: Normal to inspection, nondistended, normoactive bowel sounds present Extremity Common normals: normal to inspection, no clubbing, cyanosis or edema and no calf tenderness OB - PN: A/P Plan - day: 3 Plan: routine postop care, discharge home and follow up 6 weeks Time Spent with Patient Time: Total time spent is greater than 50% in coordination of care (as documented) at patient's floor/unit and/or counseling patient: Total time spent with greater than 50% in coordination of care (as documented) at patient's floor/unit and/or counseling patient: less than 15 minutes
[2023-04-28 15:53] VITALS: BP 140/83; PULSE 96
[2023-04-28 16:51] VITALS: RESP 18; TEMP 37.2
--- NOTE | 2023-04-28 20:09 | W.PC.ACHO ---
Registration Status: ADM IN Primary Language: Gibraltarian Preferred Language: Gibraltarian Active Medications Generic Name Dose Route Start Last Admin Trade Name Freq PRN Reason Stop Dose Admin Acetaminophen 1,000 mg 04/24/23 22:21 Acetaminophen 500 Mg Tablet PO Q6H PRN Pain Al Hydroxide/Mg Hydroxide 2,400 mg 04/25/23 23:08 Magnesium Hydroxide 2,400 Mg/10 Ml Oral.Susp PO Q6H PRN Dyspepsia Butorphanol Tartrate 1 mg 04/25/23 11:38 04/25/23 12:32 Butorphanol Tartrate 1 Mg/Ml 1 Ml Vial IM 1 mg Q4H PRN Administration Pain Calcium Carbonate 500 mg 04/24/23 22:21 Calcium Carbonate 500 Mg (200mg Elemental) Tab Chew PO TID PRN Indigestion Docusate Sodium 100 mg 04/26/23 09:00 04/28/23 09:51 Docusate Sodium 100 Mg Capsule PO 100 mg BID JEAN Administration Enoxaparin Sodium 40 mg 04/26/23 11:00 04/27/23 10:15 Enoxaparin Sodium 40 Mg/0.4 Ml Syringe SUBQ 40 mg Q24H JEAN Administration Sodium Chloride 1,000 mls @ 125 mls/hr 04/24/23 18:00 04/25/23 20:57 Sodium Chloride 0.9% 1,000 Ml IV 125 mls/hr Q8H JEAN Administration Lactated Ringer's 1,000 mls @ 50 mls/hr 04/25/23 22:45 04/25/23 22:40 Lactated Ringers IV 50 mls/hr .Q20H JEAN Administration Lactated Ringer's 1,000 mls @ 125 mls/hr 04/25/23 23:15 Lactated Ringers IV .Q8H JEAN Ibuprofen 800 mg 04/25/23 23:08 04/28/23 09:51 Ibuprofen 400 Mg Tablet PO 800 mg Q8H PRN Administration Pain Ondansetron HCl 4 mg 04/25/23 23:08 Ondansetron Pf 4 Mg/2 Ml Vial IV Q6H PRN Nausea And Vomiting Ondansetron HCl 4 mg 04/25/23 23:08 Ondansetron 4 Mg Rapdis Tablet PO Q6H PRN Nausea And Vomiting Oxycodone/Acetaminophen 2 tab 04/25/23 23:08 Oxycodone Hcl/Acetaminophen 1 Tab Tablet PO Q4H PRN Pain Scale 7-10 Oxycodone/Acetaminophen 1 tab 04/25/23 23:08 04/28/23 01:57 Oxycodone Hcl/Acetaminophen 1 Tab Tablet PO 1 tab Q4H PRN Administration Pain Scale 4-6 Senna 17.2 mg 04/25/23 20:00 Sennosides 8.6 Mg Tablet PO QHS PRN Constipation Sertraline HCl 50 mg 04/25/23 22:00 04/26/23 01:10 Sertraline Hcl 50 Mg Tablet PO Not Given QD@2200 JEAN Simethicone 80 mg 04/25/23 23:08 Simethicone 80 Mg Tab.Chew PO QID PRN Abdominal Distention Zolpidem Tartrate 5 mg 04/24/23 22:14 04/24/23 22:30 Zolpidem Tartrate 5 Mg Tablet PO 5 mg HS PRN Administration Insomnia Respiratory Oxygen Delivery Method Room Air
[2023-04-28 21:00] VITALS: BP 148/97; PULSE 90; RESP 18; TEMP 36.8
--- NOTE | 2023-04-28 22:02 | PC.NURSE ---
pt up in room consoling nb under phototherapy. pt tearful discussing nb's POC and pt wish to be at home. much discussion on nb's POC and discharge. pt appears more relaxed.
--- NOTE | 2023-04-29 07:55 | P.OBPN_ITS ---
OB - PN: Subj Subjective Patient comments: no complaints [place] status: doing well Exam Constitutional Vital Signs, click to edit/add: Last Vital Signs Temp 98.2 F 04/28/23 21:00 Pulse 90 04/28/23 21:00 Resp 18 04/28/23 21:00 BP 148/97 H 04/28/23 21:00 Pulse Ox 93 L 04/25/23 23:54 O2 Del Method Room Air 04/28/23 21:00 Documenting provider has reviewed patient's vital signs: yes Common normals: no apparent distress Respiratory Common normals: clear to auscultation bilaterally Cardio Common normals: regular rate and regular rhythm GI Common normals: Normal to inspection, nondistended, normoactive bowel sounds present Extremity Common normals: no clubbing, cyanosis or edema OB - PN: A/P Plan - day: 4 Plan: routine postop care, discharge home and other (1wk) Time Spent with Patient Time: Total time spent is greater than 50% in coordination of care (as documented) at patient's floor/unit and/or counseling patient: Total time spent with greater than 50% in coordination of care (as documented) at patient's floor/unit and/or counseling patient: less than 15 minutes
[2023-04-29 09:12] VITALS: BP 139/78; PULSE 9; RESP 16; TEMP 36.7
[2023-04-29] MEDS: DOCUSATE SODIUM 100 MG CAPSULE PO (09:20)
[2023-04-29] MEDS: IBUPROFEN 400 MG TABLET 800 MG PO (09:21)
[2023-04-29] MEDS: ENOXAPARIN SODIUM 40 MG/0.4 ML SYRINGE SUBQ (10:52)
[2023-04-29] MEDS: ADACEL DIPH,PERTUSS(ACELL),TET VAC/PF 0.5 ML ADULT SYRINGE IM (12:12)
--- NOTE | 2023-05-06 | DS_ITS ---
DISCHARGE DATE: ??05/06/2023 PRIMARY DIAGNOSES: 1.? Intrauterine at 39 weeks. 2.? Non-reassuring heart tones. PROCEDURE:? Primary low transverse section. HOSPITAL COURSE: ?As expected.? Please see chart for full details.? LABORATORY DATA:? Please see chart. COMPLICATIONS:? None. DISCHARGE CONDITION:? Stable. CONSULTATION:? Anesthesia. DISCHARGE INSTRUCTIONS: 1.? Diet:? Regular. 2.? Medications: a.? Percocet 5/325 one to two p.o. every 4-6 hours p.r.n. pain. b.? Motrin 800 one p.o. every 8 hours p.r.n. pain. 3.? Followup in one week. Restrictions:? Pelvic rest for 6 weeks.? No heavy lifting.? May drive when pain free and no longer on narcotics. BALAJID
== END 2023-04-29 14:25 | disposition home or self-care (01) | DRG 788 ==
PROVIDERS: Admitting Provider Obstetrics & Gynecology; Visit Provider Midwife
PROC: 10D00Z1 Extraction of Products of Conception, Low, Open Approach (ICD-10-PCS; CPT 59514; principal; 2023-04-25 22:00)
DX: O76 Abnormality in fetal heart rate and rhythm complicating labor and delivery (principal); Z3A.39 39 weeks gestation of pregnancy; Z37.0 Single live birth; Z86.59 Personal history of other mental and behavioral disorders; Z88.8 Allergy status to other drugs, medicaments and biological substances; Z79.899 Other long term (current) drug therapy
CPT/HCPCS: 36415; 51702; 59050; 80053; 80307; 82570; 83615; 84156; 84550; 85025; 85027; 86850; 86900; 86901; 90471; 90715; 94667; 94668; 96372; 96374; 96375; 96376

== ENCOUNTER 2023-05-01 08:10 | Outpatient (OUT) | payer OTHER, SELFPAY ==
[2023-05-01 11:08] VITALS: BP 134/88; PULSE 88; RESP 18; TEMP 36.8; O2SAT 96
--- NOTE | 2023-05-01 11:13 | PC.NURSE ---
Stephanie states baby has not been latching at home, so has pumped every 3-4 hours or as breasts become too full feeling. Infant feeds every 90 minutes to 3 hours. States would like to not pump and feed but place baby at the breast directly. Nipples are excoriated on outer edge of nipple, possible poor fitting flange or nipple shield used poorly. Discussed care and use of flanges, adames. Verbalized understanding. Infant to breast without shield vigorous rooting with no latch. Shield placed with deep latch,and obvious milk transfer with deep sucks audible swallows. Infant nurses well 14 minutes with approximately 55ml transferred as per post feed weight. Mom encouraged to feed from breast using shield for latch and discussed ways to latch shield then remove and re-latch once nipple everted more, breast softer. States will work on this. To return 05/08/2023 for continued laction support.
== END 2023-05-01 10:15 | disposition home or self-care (01) ==
LOC: FBCO 08:12
PROVIDERS: Visit Provider Obstetrics & Gynecology
DX: Z39.2 Encounter for routine postpartum follow-up (principal)

== ENCOUNTER 2023-05-08 09:39 | Outpatient (RCR) | payer OTHER, SELFPAY | END 2023-05-08 13:10 | disposition home or self-care (01) | LOC: FBCO 09:39 | PROVIDERS: Visit Provider Midwife | DX: Z39.1 Encounter for care and examination of lactating mother (principal) | CPT/HCPCS: G0463 ==